=== PATIENT | male | born 1970 | race Caucasian/White ===

== ENCOUNTER 2017-06-22 15:00 | Emergency (ER) | payer SELFPAY ==
[~2017-06-22] VITALS: Ht 165.1 cm; Wt 79.4 kg
--- NOTE | 2017-06-22 16:29 | ED GU-Male ---
General Chief Complaint: -Male Stated Complaint: CANT URINATE Nursing Triage Note: c/o urinary urgency and unable to void. States he has had urinary symptoms x 6 months but has been unable to void this morning. Source: patient, other (Ex-) Exam Limitations: no limitations History of Present Illness Time seen by provider: 16:16 Initial Comments Patient resists ER by private conveyance with chief complaint that for the past several days she's had bristly worsening severe pain while urinating some small amount of purulent looking discharge from urethra and discomfort in his suprapubic region and feels that he takes 10-15 minutes to get any urine out and starting a stream is difficult for him. He has no known history of prostatic hypertrophy or prostatic cancer. He has had one surgery on his abdomen to remove a length of colon for diverticulitis. He has not have any history of radiation or chemotherapy. He states he is on monogamous relationship and that his partner was recently tested and she told him she was cleaning. He's had no fevers, nausea, vomiting, chills, diarrhea, constipation. No history of trauma. He feels pain and swelling in the bottom side of the shaft of his penis. His testicles are non-painful or swollen. He has dyspareunia. He is not known to any primary doctor or urologist. He says this first started over 10 years ago when he had a surgery on his colon he felt that the Parsons catheter left his urethra burning off and on ever since then. Allergies and Home Medications Allergies Coded Allergies: Albuterol (Unverified Adverse Reaction, Mild, HOT, TINGLY, SHAKING, ) Constitutional: No chills, No diaphoresis, No fever Respiratory: No cough, No short of breath Cardiovascular: No chest pain, No palpitations, No syncope Gastrointestinal: abdominal pain (suprapubic mild tenderness and distention), No constipation, No diarrhea, No nausea, No vomiting Genitourinary: burning, discharge, dysuria, pain, other (urinary hesitancy and dyspareunia) Skin: No pruritus, No rash Past Kgmjcml-Kldnqm-Uoanln Hx Patient Social History Alcohol Use: Denies Use Recreational Drug Use: No Smoking Status: Current Everyday Smoker Type Used: Cigarettes Recent Foreign Travel: No Contact w/Someone Who Travel: No Recent Infectious Disease Expo: No Recent Hopitalizations: Yes (02/19/07 DIVERTICULITIS, BOWEL SURGERY, BRONCHITIS , ET STREP THROAT WHEN PT ) Surgeries History of Surgeries: Yes (PARTIAL EXCISION OF LARGE INTESTINE) Respiratory History of Respiratory Disorde: No Cardiovascular History of Cardiac Disorders: No Neurological History of Neurological Disord: No Reproductive System Hx Reproductive Disorders: No Sexually Transmitted Disease: Yes (GONORRHEA) Gastrointestinal History of Gastrointestinal Di: Yes Endocrine History of Endocrine Disorders: No Psychosocial History of Psychiatric Problem: No Blood Transfusions History of Blood Disorders: No Physical Exam Vital Signs Vital Sign - Last 12Hours 06/22/17 15:48 Temp 98.8 Pulse 90 Resp 16 B/P (MAP) 159/107 (124) O2 Delivery Room Air Capillary Refill : Less Than 3 Seconds General Appearance: WD/WN, no apparent distress HEENT: PERRL/EOMI, pharynx normal Neck: non-tender, normal inspection Cardiovascular: normal peripheral pulses, regular rate, rhythm, no edema Respiratory: chest non-tender, lungs clear, normal breath sounds Gastrointestinal: normal bowel sounds, soft, tenderness (mild tenderness over a distended bladder and the superpubic region) Male: other (penis has tenderness around the urethra and a small ecchymotic looking discoloration at the urethral orifice with a scant amount of purulent drainage when expressed. Testicles are's nonswollen nontender and without scrotal effusion.) Neurologic/Psychiatric: alert, oriented x 3 Skin: normal color, warm/dry Progress/Results/Core Measures Suspected Sepsis Recent Fever Within 48 Hours: No Infection Criteria Present: Suspected New Infection New/Unexplained Altered Menta: No Sepsis Screen: No Definite Risk Sepsis Diagnosis: SIRS Temperature:98.8 Pulse: 90 Respiratory Rate: 16 Blood Pressure 159 /107 Mean: 124 Results/Orders Lab Results Laboratory Tests Test 06/22/17 16:55 Range/Units Urine Color YELLOW Urine Clarity SLIGHTLY CLOUDY Urine pH 6 5-9 Urine Specific [place] 1.015 L 1.016-1.022 Urine Protein 1+ H NEGATIVE Urine Glucose (UA) NEGATIVE NEGATIVE Urine Ketones NEGATIVE NEGATIVE Urine Nitrite NEGATIVE NEGATIVE Urine Bilirubin NEGATIVE NEGATIVE Urine Urobilinogen NORMAL NORMAL MG/DL Urine Leukocyte Esterase 2+ H NEGATIVE Urine RBC (Auto) 4+ H NEGATIVE Urine RBC 5-10 H /HPF Urine WBC 25-50 H /HPF Urine Squamous Epithelial Cells 5-10 /HPF Urine Crystals NONE /LPF Urine Bacteria TRACE /HPF Urine Casts NONE /LPF Urine Mucus NEGATIVE /LPF Urine Culture Indicated YES My Orders Orders - RASHAD BUSTAMANTE Bladder Scan (06/22/17 15:42) Ua Culture If Indicated (06/22/17 15:42) Ceftriaxone Injection (Rocephin Injectio (06/22/17 16:30) Lidocaine 1% Injection (Xylocaine 1% Inj (06/22/17 16:30) Azithromycin Tablet (Zithromax Tablet) (06/22/17 16:30) Bladder Scan (06/22/17 16:22) Parsons Cath Insertion (06/22/17 16:22) Neis Richard Dna Urine Test (06/22/17 16:30) Chlamydia Dna Urine Test (06/22/17 16:30) Urine Culture (06/22/17 16:55) Medications Given in ED Current Medications Medications Dose Ordered Sig/Sallie Route Start Time Stop Time Status Last Admin Dose Admin Azithromycin 1,000 mg ONCE ONCE PO 06/22/17 16:30 06/22/17 16:31 DC 06/22/17 17:30 1,000 MG Ceftriaxone Sodium 250 mg ONCE ONCE IM 06/22/17 16:30 06/22/17 16:31 DC 06/22/17 17:31 250 MG Lidocaine HCl 0.9 ml ONCE ONCE INJ 06/22/17 16:30 06/22/17 16:31 DC 06/22/17 17:31 0.9 ML Vital Signs/I&O Vital Sign - Last 12Hours 06/22/17 06/22/17 06/22/17 15:48 17:31 17:31 Temp 98.8 98.8 98.8 Pulse 90 Resp 16 B/P (MAP) 159/107 (124) O2 Delivery Room Air Capillary Refill : Less Than 3 Seconds Blood Pressure Mean: 124 Progress Note : Time: 17:41 Progress Note Patient states he feels very much relieved after having the Parsons catheter placed. We did some teaching. We will talk with the urologist and get him some outpatient follow-up. Urinalysis does demonstrate evidence of infection. He's gotten the Rocephin and azithromycin and urologist a recommends Vibramycin for outpatient therapy and follow-up in the clinic. Consults Consults : Consulting Physician: LY MURRAY MD Consults Notes Discussed case the labs and findings and he recommends outpatient treatment with Vibramycin for 100 mg twice a day 10 days to help a gram positives and gram negatives. He feels that it's likely the patient if he's been expressing urethritis for this many years establish some large strictures that will need treatment in the clinic so he recommends keep Parsons catheter and call him Saturday or Saturday to get an appointment to be seen in the clinic. Departure Impression Impression: Primary Impression: Urinary tract infection Qualified Codes: N30.01 - Acute cystitis with hematuria Additional Impressions: Urethritis Urinary hesitancy Disposition: HOME, SELF-CARE Condition: Improved Departure-Patient Inst. Decision time for Depature: 17:43 Referrals: NO,LOCAL PHYSICIAN (PCP/Family) Primary Care Physician Patient Instructions: Acute Cystitis (DC), Parsons Catheter, Male Add. Discharge Instructions: Drink plenty of fluids. Keep the Parsons catheter cleaned with your regular soap and water. Keep the bag below the level of your bladder at all times to prevent refluxing urine into your bladder. Go to the pharmacy and brass pickler the Vibramycin and take one capsule 100 mg twice a day for the next 10 days. Saturday or Saturday call Dr. Murray, urology at [phone] for an appointment this week. All discharge instructions reviewed with patient and/or family. Voiced understanding. Scripts Doxycycline Hyclate (Vibramycin) 100 Mg Capsule 100 MG PO BID for 10 Days, #20 CAP 0 Refills Prov: RASHAD BUSTAMANTE 06/22/17 Copy Copies To 1: LY MURRAY MD, TITUS J Jun 22, 2017 16:29
[2017-06-22] MEDS ORDERED: AZITHROMYCIN 250 MG TAB (ZITHROMAX) PO ONE (16:30)
[2017-06-22] MEDS ORDERED: cefTRIAXone 250 MG (ROCEPHIN) VIAL IM ONE (16:30)
[2017-06-22] MEDS ORDERED: LIDOCAINE 1% INJ 20 ML (XYLOCAINE) VIAL INJ ONE (16:30)
[2017-06-22 17:04] LABS: BILIRUBIN,URINE NEGATIVE (NEGATIVE); CLARITY,URINE SLIGHTLY CLOUDY; COLOR,URINE YELLOW; GLUCOSE, URINE (UA) NEGATIVE (NEGATIVE); KETONES,URINE NEGATIVE (NEGATIVE); LEUKOCYTE ESTERASE ,URINE 2+ (NEGATIVE); NITRITE,URINE NEGATIVE (NEGATIVE); PH,URINE 6 (5-9); PROTEIN,URINE 1+ (NEGATIVE); UROBILINOGEN,URINE NORMAL (NORMAL)
[2017-06-22 17:13] LABS: BACTERIA,URINE TRACE /HPF; WBC,URINE 25-50 /HPF
[2017-06-22] MEDS ORDERED: DOXY100C PO (17:56)
[2017-06-22 18:00] VITALS: BP 148/90
== END 2017-06-22 18:00 | disposition home or self-care (01) ==
LOC: EDUNIT# 15:00 → ER 15:02
DX: N39.0 Urinary tract infection, site not specified (principal); N34.2 Other urethritis; F17.210 Nicotine dependence, cigarettes, uncomplicated
CPT/HCPCS: 36415; 51702; 81000; 87088; 87491; 87591

== ENCOUNTER 2020-01-08 08:26 | Emergency (ER) | payer SELFPAY ==
[~2020-01-08] VITALS: Ht 165 cm; Wt 77.1 kg
[~2020-01-08 08:26] MED LIST: DOXY100C PO
[2020-01-08 09:02] LABS: BILIRUBIN,URINE NEGATIVE (NEGATIVE); CLARITY,URINE CLEAR; COLOR,URINE YELLOW; GLUCOSE, URINE (UA) NEGATIVE (NEGATIVE); KETONES,URINE TRACE (NEGATIVE); LEUKOCYTE ESTERASE ,URINE NEGATIVE (NEGATIVE); NITRITE,URINE NEGATIVE (NEGATIVE); PROTEIN,URINE NEGATIVE (NEGATIVE)
[2020-01-08 09:08] LABS: BACTERIA,URINE NEGATIVE /HPF; RBC,URINE RARE /HPF; SQUAMOUS EPITHELIAL CELL,UR RARE /HPF; WBC,URINE 0-2 /HPF
[2020-01-08 09:14] LABS: AMPHETAMINE SCREEN, URINE NEGATIVE (NEGATIVE); BARBITURATE SCREEN URINE NEGATIVE (NEGATIVE); BENZODIAZEPINES SCREEN URINE NEGATIVE (NEGATIVE); CANNABINOID SCREEN, URINE POSITIVE (NEGATIVE); COCAINE SCREEN URINE NEGATIVE (NEGATIVE); METHADONE STAT NEGATIVE (NEGATIVE); METHAMPHETAMINE SCREEN URINE S NEGATIVE (NEGATIVE); OPIATE SCREEN URINE NEGATIVE (NEGATIVE); OXYCODONE STAT NEGATIVE (NEGATIVE); PROPOXYPHENE STAT NEGATIVE (NEGATIVE); TRICYCLIC ANTIDEPRESSANTS SCRE NEGATIVE (NEGATIVE)
[2020-01-08 09:28] LABS: BASOPHILS % (AUTO) 0 % (0-10); EOSINOPHILS # (AUTO) 0.1 10^3/uL (0.0-0.3); EOSINOPHILS % (AUTO) 1 % (0-10); HEMATOCRIT 46 % (40-54); HEMOGLOBIN 16.5 G/DL (13.3-17.7); LYMPHOCYTES # (AUTO) 2.5 X 10^3 (1.0-4.0); LYMPHOCYTES % (AUTO) 19 % (12-44); MEAN CORPUSCULAR HEMOGLOBIN 31 PG (25-34); MEAN CORPUSCULAR HGB CONC 36 G/DL (32-36); MEAN CORPUSCULAR VOLUME 87 FL (80-99); MEAN PLATELET VOLUME 9.7 FL (7.4-10.4); MONOCYTES # (AUTO) 1.1 X 10^3 (0.0-1.0); MONOCYTES % (AUTO) 9 % (0-12); NEUTROPHILS # (AUTO) 9.4 X 10^3 (1.8-7.8); NEUTROPHILS % (AUTO) 72 % (42-75); PLATELET COUNT 243 10^3/uL (130-400); WHITE BLOOD COUNT 13.1 10^3/uL (4.3-11.0)
[2020-01-08 09:41] LABS: ALBUMIN 4.5 GM/DL (3.2-4.5); CHLORIDE 101 MMOL/L (98-107); POTASSIUM 3.9 MMOL/L (3.6-5.0); SODIUM 136 MMOL/L (135-145)
--- NOTE | 2020-01-08 09:42 | ED Psychosocial ---
General Chief Complaint: Suicidal Ideation Risk Stated Complaint: SUICIDAL IDEATION Nursing Triage Note: PT PRESENTS TO ED WITH COMPLAINTS OF SUICIDAL IDEATION AND ATTEMPT. PT REPORTS HIS MENTAL HEALTH HAS PROGRESSIVELY GOTTEN WORSE AND LAST NIGHT AT 2100 HE TOOK 10 OF HIS DOGS TRAMADOL AND 20 IBUPROFEN WELL CONSUMING ETOH, TRYING TO KILL HIMSELF. PT ALSO REPORTS HE ATTEMPTED HANGING HIMSELF YESTERDAY WELL. PT REPORTS IN THE PAST HE WAS ABLE TO MANAGE HIS DEPRESSION BUT RECENTLY HE HAS NOT BEEN ABLE TO COPE. PT REPORTS HE IS NOT ANY MEDICATION AND DOES NOT SEE ANYONE FOR MENTAL HEALTH. Source: patient Exam Limitations: no limitations History of Present Illness Date Seen by Provider: Jan 08, 2020 Time Seen by Provider: 08:30 Initial Comments Here with report of suicidal ideation and attempt. He apparently took 20-30 ibuprofen last night as well as 10 of his dogs tramadol. Apparently he was kicked out of his house yesterday after making comments that he may need to take out himself and his . She has restraining order against him now. He states that that wasn't offhanded comment because of his struggle with depression. He is contemplating suicide and did attempt suicide with the pills and a failed hanging last night. Denies neck pain or breathing problems. He is tearful and anxious. States that his mind races all the time. He has been previously on antidepressants in the past but hasn't been on anything in a long time. Doesn't really see a physician. Does not follow with mental health. Remains suicidal and acutely significantly depressed. Denies homicidality currently. Timing/Duration: week, getting worse Severity: severe Associated Symptoms: anxiety, impaired concentration, ingestion, suicidal ideation Allergies and Home Medications Allergies Coded Allergies: Albuterol (Unverified Adverse Reaction, Mild, HOT, TINGLY, SHAKING, 08/19/07) Home Medications No Active Prescriptions or Reported Meds Patient Home Medication List Home Medication List Reviewed: Yes Review of Systems Constitutional: see HPI; No chills, No fever EENTM: no symptoms reported Respiratory: No cough, No short of breath Cardiovascular: No chest pain, No edema Gastrointestinal: No abdominal pain, No nausea, No vomiting Genitourinary: no symptoms reported Musculoskeletal: no symptoms reported Skin: no symptoms reported Psychiatric/Neurological: See HPI, Anxiety, Depressed, Emotional Problems All Other Systems Reviewed Negative Unless Noted: Yes Past Ubckrtz-Bcvbjh-Rpbuuq Hx Past Med/Social Hx: Reviewed Nursing Past Med/Soc Hx Patient Social History Alcohol Use: Rarely Uses Number of Drinks Today: 0 Recreational Drug Use: No Drug of Choice: past hx 15 years ago Smoking Status: Current Everyday Smoker Type Used: Cigarettes Recent Foreign Travel: No Contact w/Someone Who Travel: No Recent Infectious Disease Expo: No Recent Hopitalizations: Yes (02/19/07 DIVERTICULITIS, BOWEL SURGERY, BRONCHITIS, ET STREP THROAT WHEN PT ) Physical Abuse: No Sexual Abuse: No Mistreated: No Fear: No Past Medical History Surgeries: Yes (PARTIAL EXCISION OF LARGE INTESTINE r/t diverticulitis) Respiratory: No Cardiac: No Neurological: No Reproductive Disorders: No Sexually Transmitted Disease: Yes (GONORRHEA) Gastrointestinal: Yes Endocrine: No Psychosocial: Yes Depression Blood Disorders: No Family Medical History Reviewed Nursing Family Hx Heart Disease, Diabetes, Hypertension Physical Exam Vital Signs - First Documented 01/08/20 08:34 Temp 37.0 Pulse 96 Resp 20 B/P (MAP) 173/97 (122) Pulse Ox 97 Capillary Refill : Less Than 3 Seconds Height, Weight, BMI Height: 5'5.00" Weight: 175lbs. oz. [id number]; 28.00 BMI Method:Stated General Appearance: WD/WN, mild distress HEENT: PERRL/EOMI, pharynx normal Neck: non-tender, full range of motion, supple, normal inspection Respiratory: chest non-tender, lungs clear, normal breath sounds Cardiovascular: no murmur, tachycardia Gastrointestinal: non tender, soft Extremities: non-tender, normal inspection Neurologic/Psychiatric: alert, oriented x 3 Appearance/Memory: appropriate insight, disheveled Behavior/Eye Contact: cooperative, good eye contact, increased rate of speech Thoughts/Hallucinations: normal thought pattern, no apparent hallucination Skin: normal color, warm/dry; No ecchymosis Progress/Results/Core Measures Results/Orders Lab Results Laboratory Tests Test 01/08/20 08:05 01/08/20 09:16 Range/Units Urine Color YELLOW Urine Clarity CLEAR Urine pH 6.0 5-9 Urine Specific [place] <=1.005 1.016-1.022 Urine Protein NEGATIVE NEGATIVE Urine Glucose (UA) NEGATIVE NEGATIVE Urine Ketones TRACE H NEGATIVE Urine Nitrite NEGATIVE NEGATIVE Urine Bilirubin NEGATIVE NEGATIVE Urine Urobilinogen 0.2 < = 1.0 MG/DL Urine Leukocyte Esterase NEGATIVE NEGATIVE Urine RBC (Auto) TRACE-I NEGATIVE Urine RBC RARE /HPF Urine WBC 0-2 /HPF Urine Squamous Epithelial Cells RARE /HPF Urine Crystals NONE /LPF Urine Bacteria NEGATIVE /HPF Urine Casts NONE /LPF Urine Mucus NEGATIVE /LPF Urine Culture Indicated NO Urine Opiates Screen NEGATIVE NEGATIVE Urine Oxycodone Screen NEGATIVE NEGATIVE Urine Methadone Screen NEGATIVE NEGATIVE Urine Propoxyphene Screen NEGATIVE NEGATIVE Urine Barbiturates Screen NEGATIVE NEGATIVE Ur Tricyclic Antidepressants Screen NEGATIVE NEGATIVE Urine Phencyclidine Screen NEGATIVE NEGATIVE Urine Amphetamines Screen NEGATIVE NEGATIVE Urine Methamphetamines Screen NEGATIVE NEGATIVE Urine Benzodiazepines Screen NEGATIVE NEGATIVE Urine Cocaine Screen NEGATIVE NEGATIVE Urine Cannabinoids Screen POSITIVE H NEGATIVE White Blood Count 13.1 H 4.3-11.0 10^3/uL Red Blood Count 5.31 4.35-5.85 10^6/uL Hemoglobin 16.5 13.3-17.7 G/DL Hematocrit 46 40-54 % Mean Corpuscular Volume 87 80-99 FL Mean Corpuscular Hemoglobin 31 25-34 PG Mean Corpuscular Hemoglobin Concent 36 32-36 G/DL Red Cell Distribution Width 13.0 10.0-14.5 % Platelet Count 243 130-400 10^3/uL Mean Platelet Volume 9.7 7.4-10.4 FL Neutrophils (%) (Auto) 72 42-75 % Lymphocytes (%) (Auto) 19 12-44 % Monocytes (%) (Auto) 9 0-12 % Eosinophils (%) (Auto) 1 0-10 % Basophils (%) (Auto) 0 0-10 % Neutrophils # (Auto) 9.4 H 1.8-7.8 X 10^3 Lymphocytes # (Auto) 2.5 1.0-4.0 X 10^3 Monocytes # (Auto) 1.1 H 0.0-1.0 X 10^3 Eosinophils # (Auto) 0.1 0.0-0.3 10^3/uL Basophils # (Auto) 0.0 0.0-0.1 10^3/uL Sodium Level 136 135-145 MMOL/L Potassium Level 3.9 3.6-5.0 MMOL/L Chloride Level 101 98-107 MMOL/L Carbon Dioxide Level 22 21-32 MMOL/L Anion Gap 13 5-14 MMOL/L Blood Urea Nitrogen 10 7-18 MG/DL Creatinine 0.88 0.60-1.30 MG/DL Estimat Glomerular Filtration Rate > 60 BUN/Creatinine Ratio 11 Glucose Level 119 H 70-105 MG/DL Calcium Level 10.4 H 8.5-10.1 MG/DL Corrected Calcium 10.0 8.5-10.1 MG/DL Total Bilirubin 0.9 0.1-1.0 MG/DL Aspartate Amino Transf (AST/SGOT) 21 5-34 U/L Alanine Aminotransferase (ALT/SGPT) 20 0-55 U/L Alkaline Phosphatase 62 40-136 U/L Total Protein 7.7 6.4-8.2 GM/DL Albumin 4.5 3.2-4.5 GM/DL TSH [place] Testing 0.77 0.35-4.94 UIU/ML Salicylates Level < 5.0 L 5.0-20.0 MG/DL Acetaminophen Level < 10 L 10-30 UG/ML Serum Alcohol < 10 <10 MG/DL My Orders Orders - PADILLA KAISER MD Ua Culture If Indicated (01/08/20 08:40) Cbc With Automated Diff (01/08/20 08:40) Comprehensive Metabolic Panel (01/08/20 08:40) Alcohol (01/08/20 08:40) Drug Screen Stat (Urine) (01/08/20 08:40) Acetaminophen (01/08/20 08:40) Salicylate (01/08/20 08:40) Ekg Tracing (01/08/20 08:40) Ed Iv/Invasive Line Start (01/08/20 08:40) Thyroid Analyzer (01/08/20 08:40) Monitor-Rhythm Ecg Trace Only (01/08/20 08:40) Bh Status Checks/Observation Q15M (01/08/20 08:40) Ed Iv/Invasive Line Start (01/08/20 08:40) General/Regular (01/08/20 Breakfast) Amlodipine Tablet (Norvasc Tablet) (01/08/20 10:30) Medications Given in ED Current Medications Medications Dose Ordered Sig/Sallie Route Start Time Stop Time Status Last Admin Dose Admin Amlodipine Besylate 5 mg ONCE ONCE PO 01/08/20 10:30 01/08/20 10:31 DC 01/08/20 10:27 5 MG Vital Signs/I&O 01/08/20 08:34 Temp 37.0 Pulse 96 Resp 20 B/P (MAP) 173/97 (122) Pulse Ox 97 Blood Pressure Mean: 122 Progress Progress Note : Progress Note Seen and evaluated. Labs, UA and EKG ordered. Poison control recontacted although patient should be well outside of a toxicity window since the overdose was at 9 PM last night. Monitor patient. 1010: Patient medically cleared for inpatient psychiatric stay. We will initiate trying to find facility. Monitor patient. 1248: Remains calm and without distress. We're working on finding facility still. Monitor patient. 1321: I did discuss the case with Dr. Ken at [facility] in [place], [place]. He has accepted the patient for transfer. Pending bed number. Discussed with the patient who agrees. Initial ECG Impression Date: Jan 08, 2020 Initial ECG Impression Time: 08:50 Initial ECG Rate: 86 Initial ECG Rhythm: Normal Sinus Initial ECG Impression: Normal Comment Normal sinus rhythm with normal axis. No evidence of ST elevation [place]. No Previous available for comparison. Interpreted by me. Departure Impression Primary Impression: Suicide attempt Additional Impressions: Suicidal ideation Severe depression Disposition: 02 XFER SHT-TRM HOSP Condition: Stable Transfer Transfer Reason: Exceeds level of care Time Spoke to Accepting Phy: 13:21 Transfer Facility: [place], [place], Dr. Ken accepting Method of Transfer: Private Vehicle ([facility]) Departure-Patient Inst. Referrals: NO,LOCAL PHYSICIAN (PCP/Family) Primary Care Physician Patient Instructions: OUTPT MENTAL HEALTH SERVICES Scripts No Active Prescriptions or Reported Meds PADILLA KAISER MD Jan 08, 2020 09:42
[2020-01-08 09:43] LABS: CALCIUM 10.4 MG/DL (8.5-10.1)
[2020-01-08 09:44] LABS: GLUCOSE 119 MG/DL (70-105); TOTAL PROTEIN 7.7 GM/DL (6.4-8.2)
[2020-01-08 09:45] LABS: CARBON DIOXIDE 22 MMOL/L (21-32)
[2020-01-08 09:46] LABS: BILIRUBIN,TOTAL 0.9 MG/DL (0.1-1.0)
[2020-01-08 09:48] LABS: ALKALINE PHOSPHATASE 62 U/L (40-136); CREATININE SERUM 0.88 MG/DL (0.60-1.30); GFR ESTIMATED > 60
[2020-01-08 09:49] LABS: BUN/CREATININE RATIO 11
[2020-01-08 09:50] LABS: SALICYLATE < 5.0 MG/DL (5.0-20.0)
[2020-01-08 09:51] LABS: ALANINE AMINOTRANSFERASE 20 U/L (0-55)
[2020-01-08 10:04] LABS: ACETAMINOPHEN < 10 UG/ML (10-30)
[2020-01-08] MEDS ORDERED: amLODIPine 5 MG (NORVASC) TAB PO ONE (10:30)
--- NOTE | 2020-01-08 11:47 | NUR ---
pt up using restroom at this time.
--- NOTE | 2020-01-08 13:14 | NUR ---
fer contacted regarding bed status and whether they had recieved fax info on pt. message left on voicemail.
--- NOTE | 2020-01-08 13:30 | NUR ---
john faye called for transportation of pt to [facility] at this time
--- NOTE | 2020-01-08 13:41 | NUR ---
karlene cooper pt at this time
[2020-01-08] MEDS ORDERED: NS IV 1000 ML 0 ML ONE (14:33)
[2020-01-08] MEDS ORDERED: LACTATED RINGERS 0 ML IV ONE (14:34)
[2020-01-08 15:23] VITALS: BP 152/90
--- OUTSIDE RECORDS SUMMARY | 2020-01-08 17:14 | XMS REPORT | Continuity of Care Document ---
Author Organization Unknown Address Unknown Phone Unavailable Allergies Active Description Code Type Severity Reaction Onset Reported/Identified Relationship to Patient Clinical Status Yes albuterol [id number] Drug Allergy Mild HOT, TINGLY, SH 08/19/2007 Medications There is no data. Problems Date Dx Coded Attending Type Code Diagnosis Diagnosed By 06/22/2017 RASHAD BUSTAMANTE MD J Ot F17.210 NICOTINE DEPENDENCE, CIGARETTES, UNCOMPL 06/22/2017 RASHAD BUSTAMANTE MD Ot N34. 2 OTHER URETHRITIS 06/22/2017 RASHAD BUSTAMANTE MD J Ot N39. 0 URINARY TRACT INFECTION, SITE NOT SPECIF 06/22/2017 RASHAD BUSTAMANTE MD Ot R30. 0 DYSURIA 06/28/2017 RASHAD BUSTAMANTE MD Ot F17.210 NICOTINE DEPENDENCE, CIGARETTES, UNCOMPL 06/28/2017 JANIE BUSTAMANTE MDUS J Ot N34. 2 OTHER URETHRITIS 06/28/2017 RASHAD BUSTAMANTE MD J Ot N39. 0 URINARY TRACT INFECTION, SITE NOT SPECIF 06/28/2017 RASHAD BUSTAMANTE MD Ot R30. 0 DYSURIA Procedures There is no data. Results Test Result Range Complete urinalysis with reflex to cultu re - 06/22/17 16:55 Urine color determination YELLOW NRG Urine clarity determination SLIGHTLY CLOUDY NRG Urine pH measurement by test strip 6 5-9 Specific gravity of urine by test strip 1.015 1.016-1.022 Urine protein assay by test strip, semi-quantitative 1+ NEGATIVE Urine glucose detection by automated test strip NE GATIVE NEGATIVE Erythrocytes detection in urine sediment by light micr oscopy 4+ NEGATIVE Urine ketones detection by automated test strip NE GATIVE NEGATIVE Urine nitrite detection by test strip NEGATIVE NEGATIVE Urine total bilirubin detection by test strip NEGA TIVE NEGATIVE Urine urobilinogen measurement by automated test strip (mass/volume) NORMAL NORMAL Urine leukocyte esterase detection by dipstick 2+ NEGATIVE Automated urine sediment erythrocyte cou nt by microscopy (number/high power field) [HPF] NRG Automated urine sediment leukocyte count by microscopy (number/high power field) [HPF] NRG Bacteria detection in urine sediment by light microsco py TRACE NRG Squamous epithelial cells detection in u rine sediment by light microscopy 5-10 NRG Crystals detection in urine sediment by light microsco py NONE NRG Casts detection in urine sediment by light microscopy NONE NRG Mucus detection in urine sediment by light microscopy NEGATIVE NRG Complete urinalysis with reflex to culture YES NRG Bacterial urine culture - 06/22/17 16:55 URINE CULTURE RESULTS MORE THAN 3 ISOLATES NRG Chlamydia DNA amp probe, urine - 8 16:55 Chlamydia DNA amp probe, urine Not Detected Not Detected Urine Neisseria gonorrhoeae DNA assay - 06/22/17 16:55 Gonorrhea amp DNA-urine Not Detected No t Detected Complete urinalysis with reflex to cultu re - 01/08/20 08:05 Urine color determination YELLOW NRG Urine clarity determination CLEAR NR G Urine pH measurement by test strip 6.0 5-9 Specific gravity of urine by test strip <= 1.016-1.022 Urine protein assay by test strip, semi-quantitative NEGATIVE NEGATIVE Urine glucose detection by automated test strip NE GATIVE NEGATIVE Erythrocytes detection in urine sediment by light micr oscopy TRACE-I NEGATIVE Urine ketones detection by automated test strip TR SRAVANI NEGATIVE Urine nitrite detection by test strip NEGATIVE NEGATIVE Urine total bilirubin detection by test strip NEGA TIVE NEGATIVE Urine urobilinogen measurement by automated test strip (mass/volume) 0.2 mg/dL < = 1.0 Urine leukocyte esterase detection by dipstick NEG ATIVE NEGATIVE Automated urine sediment erythrocyte cou nt by microscopy (number/high power field) RARE NRG Automated urine sediment leukocyte count by microscopy (number/high power field) [HPF] NRG Bacteria detection in urine sediment by light microsco py NEGATIVE NRG Squamous epithelial cells detection in u rine sediment by light microscopy RARE NRG Crystals detection in urine sediment by light microsco py NONE NRG Casts detection in urine sediment by light microscopy NONE NRG Mucus detection in urine sediment by light microscopy NEGATIVE NRG Complete urinalysis with reflex to culture NO NRG Urine drug screening test - 01/08/20 08: 05 Urine phencyclidine detection by screening method NEGATIVE NEGATIVE Urine benzodiazepines detection by screening method NEGATIVE NEGATIVE Urine cocaine detection NEGATIVE NEGATI VE Urine amphetamines detection by screening method N EGATIVE NEGATIVE Urine methamphetamine detection by screening method NEGATIVE NEGATIVE Urine cannabinoids detection by screening method P OSITIVE NEGATIVE Urine opiates detection by screening method NEGATI VE NEGATIVE Urine barbiturates detection NEGATIVE N EGATIVE Screening urine tricyclic antidepressants detection NEGATIVE NEGATIVE Urine methadone detection by screening method NEGA TIVE NEGATIVE Urine oxycodone detection NEGATIVE NEGA TIVE Urine propoxyphene detection NEGATIVE N EGATIVE Complete blood count (CBC) with automate d white blood cell (WBC) differential - 01/08/20 09:16 Blood leukocytes automated count (number/volume) 13.1 10*3/uL 4.3-11.0 Blood erythrocytes automated count (number/volume) 5.31 10*6/uL 4.35-5.85 Venous blood hemoglobin measurement (mass/volume) 16.5 g/dL 13.3-17.7 Blood hematocrit (volume fraction) 46 % 40-54 Automated erythrocyte mean corpuscular volume 87 [ foz_us] 80-99 Automated erythrocyte mean corpuscular h emoglobin (mass per erythrocyte) 31 pg 25-34 Automated erythrocyte mean corpuscular h emoglobin concentration measurement (mass/volume) 36 g/dL 32-36 Automated erythrocyte distribution width ratio 13. 0 % 10.0- 14.5 Automated blood platelet count (count/volume) 243 10*3/uL 130-400 Automated blood platelet mean volume measurement 9.7 [foz_us] 7.4-10.4 Automated blood neutrophils/100 leukocytes 72 % 42-75 Automated blood lymphocytes/100 leukocytes 19 % 12-44 Blood monocytes/100 leukocytes 9 % 0-12 Automated blood eosinophils/100 leukocytes 1 % 0-10 Automated blood basophils/100 leukocytes 0 % 0-10 Blood neutrophils automated count (number/volume) 9.4 10*3 1.8-7.8 Blood lymphocytes automated count (number/volume) 2.5 10*3 1.0-4.0 Blood monocytes automated count (number/volume) 1. 1 10*3 0.0-1.0 Automated eosinophil count 0.1 10*3/uL 0 .0-0.3 Automated blood basophil count (count/volume) 0.0 10*3/uL 0.0-0.1 Comprehensive metabolic panel - 01/08/20 09:16 Serum or plasma sodium measurement (moles/volume) 136 mmol/L 135-145 Serum or plasma potassium measurement (moles/volume) 3.9 mmol/L 3.6-5.0 Serum or plasma chloride measurement (moles/volume) 101 mmol/L 98-107 Carbon dioxide 22 mmol/L 21-32 Serum or plasma anion gap determination (moles/volume) 13 mmol/L 5-14 Serum or plasma urea nitrogen measurement (mass/volume ) 10 mg/dL 7-18 Serum or plasma creatinine measurement (mass/volume) 0.88 mg/dL 0.60-1.30 Serum or plasma urea nitrogen/creatinine mass ratio 11 NRG Serum or plasma creatinine measurement w ith calculation of estimated glomerular filtration rate > NRG Serum or plasma glucose measurement (mass/volume) 119 mg/dL 70-105 Serum or plasma calcium measurement (mass/volume) 10.4 mg/dL 8.5-10.1 Serum or plasma total bilirubin measurement (mass/volu me) 0.9 mg/dL 0.1-1.0 Serum or plasma alkaline phosphatase rodney surement (enzymatic activity/volume) 62 U/L 40-136 Serum or plasma aspartate aminotransfera se measurement (enzymatic activity/volume) 21 U/L 5-34 Serum or plasma alanine aminotransferase measurement (enzymatic activity/volume) 20 U/L 0-55 Serum or plasma protein measurement (mass/volume) 7.7 g/dL 6.4-8.2 Serum or plasma albumin measurement (mass/volume) 4.5 g/dL 3.2-4.5 CALCIUM CORRECTED 10.0 mg/dL 8.5-10.1 Serum or plasma ethanol measurement (mas s/volume) - 01/08/20 09:16 Serum or plasma ethanol measurement (mass/volume) < mg/dL <10 Serum or plasma thyrotropin measurement by detection limit <=0.05 miu/l (units/volume) - 01/08/20 09:16 Serum or plasma thyrotropin measurement by detection limit <=0.05 miu/l (units/volume) 0.77 u[iU]/mL 0.35-4.94 Encounters ACCT No. Visit Date/Time Discharge Status Pt. Type Provider Facility Loc./Unit Complaint [id number] 01/08/2020 08:27:00 020 15:23:00 DIS Emergency PADILLA KAISER MD [facility] ER SUICIDAL IDEATI ON [id number] 06/22/2017 15:02:00 018 18:00:00 DIS Emergency ROBBY CORBETT, RASHAD Valles [facility] ER CANT URINATE
== END 2020-01-08 15:23 | disposition short-term general hospital (02) ==
LOC: EDUNIT# 08:26 → ER 08:27
DX: T14.91XA Suicide attempt, initial encounter (principal); F32.9 Major depressive disorder, single episode, unspecified; F17.210 Nicotine dependence, cigarettes, uncomplicated; Z88.8 Allergy status to other drugs, medicaments and biological substances; Z82.49 Family history of ischemic heart disease and other diseases of the circulatory system; X58.XXXA Exposure to other specified factors, initial encounter
CPT/HCPCS: 80053; 80306; 81000; 84443; 85025; 93041; 99285; G0480 ×3; 36415; 80320; 80329; 93005

== ENCOUNTER 2020-05-13 05:30 | Outpatient (RCR) | payer OTHER ==
[~2020-05-13] VITALS: Ht 165 cm; Wt 85.0 kg
[~2020-05-13 05:30] MED LIST changes: +AMLO-251 PO; +FLUO20CA42 PO; +LISI-552 PO
== END 2020-05-13 09:55 | disposition home or self-care (01) ==
LOC: EDBD → PREOP 05:30
PROVIDERS: ATTEND Urology
DX: Z01.812 Encounter for preprocedural laboratory examination (principal); N35.919 Unspecified urethral stricture, male, unspecified site; M89.9 Disorder of bone, unspecified; Z20.828 Contact with and (suspected) exposure to other viral communicable diseases
CPT/HCPCS: 87635

== ENCOUNTER 2020-05-17 06:45 | Day surgery (SDC) | payer OTHER ==
[2020-05-17] VITALS (10 sets, daily range): BP systolic 117–167; BP diastolic 58–97
[~2020-05-17] VITALS: Ht 165 cm; Wt 86.0 kg
--- NOTE | 2020-05-17 07:07 | Progress Note-Pre Operative ---
Pre-Operative Progress Note H&P Reviewed The H&P was reviewed, patient examined and no changes noted. Date Seen by Provider: May 17, 2020 Time Seen by Provider: 07:06 Date H&P Reviewed: May 17, 2020 Time H&P Reviewed: 07:06 Pre-Operative Diagnosis: LARGE INGUINAL AND SMALL PENILE WARTS, AND SEVERE MEATAL STENOSIS LY MURRAY MD May 17, 2020 07:07
--- NOTE | 2020-05-17 07:16 | Progress Note-Post Operative ---
Post-Operative Progess Note Surgeon (s)/Food And Beverage Operations Manager (s) Surgeon LY MURRAY MD Food And Beverage Operations Manager: SAME Pre-Operative Diagnosis LARGE INGUINAL AND SMALL PENILE WARTS, AND SEVERE MEATAL STENOSIS Post-Operative Diagnosis SAME Procedure & Operative Findings Date of Procedure 05/17/20 Procedure Performed/Findings EXCISION OF WARTS, MEATOTOMY, AND CYSTOSCOPY Anesthesia Type GENERAL Estimated Blood Loss Estimated blood loss (mL): NONE Specimens/Packing Specimens Removed SCROTAL AND INGUINAL WARTS Packing: NONE LY MURRAY MD May 17, 2020 07:16
--- NOTE | 2020-05-17 07:18 | Discharge Inst-Urology ---
Discharge Inst-Urology Reconcile Patient Problems Problems Reviewed?: Yes Final Diagnosis WARTS AND SEVERE MEATAL STENOSIS Patient Instructions/Follow Up Plan/Assessment/Instructions Please make appointment to been seen in office in 4 weeks. Rest for 1 week Neosporin+Pain ointment to meatus and excised warts areas BID for 5 days Showers, no bath Keep bowels soft and moving Increase oral fluids for 48 hours and then as needed. Diet as tolerated. If questions or concerns contact your physician Or seek help at emergency department. LY MURRAY MD May 17, 2020 07:18
[2020-05-17] MEDS: LACTATED RINGERS 1,000 ML IV PRN ×2 (07:55→09:17)
[2020-05-17] MEDS ORDERED: ceFAZolin INJECTION 1,000 MG in WATER (STERILE) FOR INJECTION 10 ML IV ONE (08:00)
[2020-05-17] MEDS ORDERED: fentaNYL INJECTION 100 MCG/2 ML AMP ONE ×2 (08:21→09:13)
[2020-05-17] MEDS ORDERED: MIDAZOLAM 2 MG/2 ML (VERSED) VIAL ONE (08:21)
[2020-05-17] MEDS ORDERED: proPOfol 200 MG/20 ML (DIPRIVAN) VIAL IV ONE (08:21)
[2020-05-17] MEDS ORDERED: LIDOCAINE PF 2% 5 ML (XYLOCAINE) VIAL ONE (08:21)
[2020-05-17] MEDS ORDERED: SEVOFLURANE (ULTANE) 15 ML INHAL SOLN ONE (08:21)
[2020-05-17] MEDS ORDERED: ONDANSETRON 4 MG/2 ML (SDV) Z0FRAN ONE (08:21)
[2020-05-17] MEDS ORDERED: NEO/POLY/BAC (NEOSPORIN) OINT 15 GM TUBE ONE (09:17)
[2020-05-17] MEDS ORDERED: PHENYLEPHRINE 100 MCG/ML 10 ML (ANESTHESIA) SYR ONE (09:35)
[2020-05-17] MEDS ORDERED: CEPH-507 PO (09:41)
[2020-05-17] MEDS ORDERED: TRM50T PO (09:41)
[2020-05-17] MEDS ORDERED: MEPERIDINE (DEMEROL) INJ 50 MG/ML IVP ONE (09:45)
[2020-05-17] MEDS ORDERED: fentaNYL INJECTION 100 MCG/2 ML AMP IVP ONE (09:45)
[2020-05-17] MEDS ORDERED: morphine INJ 10 MG/ML 1ML (SYR OR VIAL) IVP ONE (09:45)
[2020-05-17] MEDS ORDERED: ONDANSETRON 4 MG/2 ML (SDV) Z0FRAN IVP PRN (09:45)
--- NOTE | 2020-05-17 09:46 | Anesthesia-General Post-Op ---
General Patient Condition Mental Status/LOC: Same as Preop Cardiovascular: Satisfactory Nausea/Vomiting: Absent Respiratory: Satisfactory Pain: Controlled Complications: Absent Post Op Complications Complications None Follow Up Care/Instructions Patient Instructions None needed. Anesthesia/Patient Condition Patient Condition Patient is doing well, no complaints, stable vital signs, no apparent adverse anesthesia problems. No complications reported per nursing. SOFIYA AKBAR CRNA May 17, 2020 09:46
--- NOTE | 2020-05-17 10:25 | NUR ---
TO AMB SURG FROM PAR PER CART. RATES GENITAL SURGICAL SITE PAIN 4. NO BLEEDING AT SCROTAL SURGICAL SITES, ICE PACK ON. PO FLUIDS AND CRACKERS PROVIDED.
--- NOTE | 2020-05-17 10:59 | NUR ---
TRAMADOL 50 MG, ONE TAB, GIVEN PO FOR GENITAL SURGICAL SITE PAIN.
--- NOTE | 2020-05-17 11:55 | NUR ---
RESTING QUIETLY, RATES GENITAL SURGICAL SITE INCISIONAL PAIN 2-3, NO BLEEDING AT SITES. STATES HE IS READY FOR DISMISSAL.
--- NOTE | 2020-05-17 13:57 | OPERATIVE REPORT ---
DATE OF SERVICE: 05/17/2020 PREOPERATIVE DIAGNOSES: 1. Severe meatal stenosis. 2. Left scrotal wart. 3. Large left inguinal wart. POSTOPERATIVE DIAGNOSES: 1. Severe meatal stenosis. 2. Left scrotal wart. 3. Large left inguinal wart. OPERATION PERFORMED: Meatotomy, meatoplasty, cystoscopy and excision of scrotal and inguinal warts. SURGEON: Aroldo Murray MD ANESTHESIA: General. COMPLICATIONS: None. DESCRIPTION OF PROCEDURE: Frist I went ahead and performed a meatotomy ventrally then approximated the mucosa with interrupted 3-0 chromic catgut, it was wide opening of the meatus. Flexible cystoscope was introduced under vision. The anterior urethra was normal. The prostate was nonobstructing. Bladder neck was open. Bladder was inspected and was normal and clean. No foreign body, bladder tumor or stone visualized. Cystoscopy was confirmed in an antegrade fashion and the cystoscope was removed. I excised the small wart in the left scrotal wall, cauterized the base and then approximated the skin was interrupted 3-0 chromic catgut. Then, I excised the large wart at the left inguinal area, cauterized all the base to kill any viruses and then approximated the edges with interrupted 3-0 chromic catgut. Needle, sponge, instrument counts were correct. Estimated blood loss negligible. Neosporin plus pain was applied to the meatus and to areas of both excision. The patient tolerated the procedure and anesthesia well and was sent to recovery room in stable condition. Instructions were given to his . Job ID: [id number] DocumentID: [id number] Dictated Date: 05/17/2020 09:29:32 Manager Search Engine Date: 05/17/2020 13:56:06 Dictated By: AROLDO MURRAY MD [facility]
== END 2020-05-17 12:10 | disposition home or self-care (01) ==
LOC: SDC 06:45
PROVIDERS: ATTEND Urology
DX: N35.911 Unspecified urethral stricture, male, meatal (principal); B07.9 Viral wart, unspecified; A63.0 Anogenital (venereal) warts; J44.9 Chronic obstructive pulmonary disease, unspecified; G47.33 Obstructive sleep apnea (adult) (pediatric); I10 Essential (primary) hypertension; K21.9 Gastro-esophageal reflux disease without esophagitis; F41.9 Anxiety disorder, unspecified; F32.9 Major depressive disorder, single episode, unspecified; E66.9 Obesity, unspecified; Z68.31 Body mass index [BMI] 31.0-31.9, adult; Z79.899 Other long term (current) drug therapy; Z88.8 Allergy status to other drugs, medicaments and biological substances
CPT/HCPCS: 87081; 88305

== ENCOUNTER → 2021-10-19 | Outpatient (CLI) | payer OTHER ==
[~2021-10-19] MED LIST changes: +CEPH-507 PO; -LISI-552 PO; +LISI20TA26 PO; +TRM50T PO
== END ==
LOC: CARD 11:00
PROVIDERS: ATTEND Physician Assistant
DX: I11.9 Hypertensive heart disease without heart failure (principal)
CPT/HCPCS: 93306

== ENCOUNTER → 2021-11-01 | Outpatient (CLI) | payer OTHER ==
[~2021-11-01] MED LIST changes: +CATHETER FLUSH 10 ML SYR IVP PRN; +REGADENOSON 0.4 MG/5 ML SYR (LEXISCAN) IV ONE
[2021-11-01 13:25] VITALS: BP 150/89
--- NOTE | 2021-11-01 16:25 | Cardiology Stress Test Report ---
Stress Test Report Date of Procedure/Referring: Date of Procedure: November 01, 2021 PCP No,Local Physician Admitting Physician Admitting Physician: Attending Physician: Marybeth Hull Indications: HTN Baseline Heart Rate: 86 Baseline Blood Pressure: Blood Pressure Systolic: 150 Blood Pressure Diastolic: 89 Baseline Vitals Vital Signs Date Time Temp Pulse Resp B/P (MAP) Pulse Ox O2 Delivery O2 Flow Rate FiO2 11/01/21 13:25 82 150/89 (109) 97 Baseline EKG: Baseline EKG: NSR Summary After explaining the procedure to the patient, he signed a consent and then brought to the stress nuclear laboratory. Patient received 0.4 mg Lexiscan for stress test, ECG, heart rate and blood pressure were monitored continuously. Resting and stress dose of radio tracer were injected, imaging was acquired and reviewed in short axis, horizontal long axis and vertical long axis views. TID: 1.07 SSS: 7 SDS: 7 EF: 52 1. Patient tolerated Lexiscan well 2. Reversible ischemia involving the mid to apical anterior wall, mid to apical inferior wall 3. Normal left ventricular size, ejection fraction 52% EMILY GOODE MD November 01, 2021 16:25
== END ==
LOC: CARD 11:09
PROVIDERS: ATTEND Physician Assistant
DX: I10 Essential (primary) hypertension (principal)
CPT/HCPCS: 78452; 93017; A9502

== ENCOUNTER 2021-11-08 08:50 | Day surgery (SDC) | payer OTHER ==
[~2021-11-08] VITALS: Ht 165.1 cm; Wt 90.7 kg
[2021-11-08] VITALS (9 sets, daily range): BP systolic 114–170; BP diastolic 71–98
[~2021-11-08 08:50] MED LIST changes: -CATHETER FLUSH 10 ML SYR IVP PRN; -REGADENOSON 0.4 MG/5 ML SYR (LEXISCAN) IV ONE
[2021-11-08] MEDS ORDERED: HEParin (CATH LAB) 2,000 ML IV ONE (09:08)
[2021-11-08] MEDS ORDERED: LIDOCAINE 1% INJ 20 ML VIAL ONE (09:08)
[2021-11-08] MEDS ORDERED: NS IV 1000 ML 1,000 ML IV SCH ×2 (09:15→11:15)
[2021-11-08 09:34] LABS: HEMATOCRIT 45 % (40-54); HEMOGLOBIN 15.4 g/dL (13.3-17.7); MEAN CORPUSCULAR HEMOGLOBIN 30 pg (25-34); MEAN CORPUSCULAR HGB CONC 34 g/dL (32-36); MEAN CORPUSCULAR VOLUME 89 fL (80-99); PLATELET COUNT 200 10^3/uL (130-400); WHITE BLOOD COUNT 8.5 10^3/uL (4.3-11.0)
--- NOTE | 2021-11-08 09:34 | Diagnostic Imaging Report ---
INDICATION: Abnormal stress test AP view of the chest is obtained. COMPARISON: No previous study is available for comparison at this time. FINDINGS: Heart size and pulmonary vasculature are within normal limits, and the lungs are clear, bilaterally. IMPRESSION: Unremarkable chest. Dictated by: Dictated on workstation # [id number]
[2021-11-08 09:35] LABS: BILIRUBIN,URINE NEGATIVE (NEGATIVE); CLARITY,URINE CLEAR; COLOR,URINE YELLOW; GLUCOSE, URINE (UA) NEGATIVE (NEGATIVE); KETONES,URINE NEGATIVE (NEGATIVE); LEUKOCYTE ESTERASE ,URINE NEGATIVE (NEGATIVE); NITRITE,URINE NEGATIVE (NEGATIVE); PROTEIN,URINE 2+ (NEGATIVE)
[2021-11-08] MEDS ORDERED: ATOR20TA66 PO (09:47)
[2021-11-08] MEDS ORDERED: METO50TA7 PO (09:47)
[2021-11-08] MEDS ORDERED: FLUO40CA12 PO (09:47)
[2021-11-08] MEDS ORDERED: LISI20TA26 PO (09:47)
[2021-11-08 09:56] LABS: POTASSIUM 3.8 MMOL/L (3.6-5.0)
[2021-11-08 09:57] LABS: ALBUMIN 4.1 GM/DL (3.2-4.5)
[2021-11-08 09:58] LABS: CALCIUM 9.2 MG/DL (8.5-10.1)
[2021-11-08 10:01] LABS: BILIRUBIN,TOTAL 0.4 MG/DL (0.1-1.0)
[2021-11-08 10:02] LABS: INR 0.9 (0.8-1.4); PROTHROMBIN TIME PATIENT 12.9 SEC (12.2-14.7)
[2021-11-08 10:03] LABS: CREATININE SERUM 0.78 MG/DL (0.60-1.30)
[2021-11-08 10:12] LABS: BACTERIA,URINE NEGATIVE /HPF; SQUAMOUS EPITHELIAL CELL,UR 0-2 /HPF; WBC,URINE 0-2 /HPF
[2021-11-08 10:13] LABS: URINE OTHER MOD SPERM /HPF
[2021-11-08] MEDS ORDERED: MIDAZOLAM 5 MG/5 ML (VERSED) VIAL ONE (10:23)
[2021-11-08] MEDS ORDERED: HEParin 1000 UNIT/ML (10ML VIAL) FOR BOLUS ONE (10:23)
[2021-11-08] MEDS ORDERED: NITRO DRIP 25000 MCG/D5W 250 ML IV ONE (10:23)
[2021-11-08] MEDS ORDERED: fentaNYL INJ 100 MCG/2 ML AMP ONE (10:23)
[2021-11-08] MEDS ORDERED: VERAPAMIL 5 MG/2 ML (CALAN) VIAL IV ONE (10:23)
--- NOTE | 2021-11-08 11:02 | Conscious Sedation/ASA ---
Conscious Sedation Pre-Proced Time 11:02 ASA Score 3 For ASA 3 and 4: Consider anesthesia and medical clearance. Also, for patients with a history of failed moderate sedation consider anesthesia. Airway Lungs Heart ASA score ASA 1: a normal healthy patient ASA 2: a patient with a mild systemic disease (mid diabetes, controlled hypertension, obesity x ASA 3: a patient with a severe systemic disease that limits activity (angina, COPD, prior Myocardial infarction) ASA 4: a patient with an incapacitating disease that is a constant threat to life (CHF, renal failure) ASA 5: a moribund patient not expected to survive 24 hrs. (ruptured aneurysm) ASA 6: a declared brain- patient whose organs are being harvested. For emergent operations, add the letter E after the classification Mallampati Classification Grade 3 Sedation Plan Analgesia, Amnesia, Plan communicated to team members, Discussed options with patient/fam, Discussed risks with patient/fam The patient is an appropriate candidate to undergo the planned procedure, sedation, and anesthesia. The patient immediately re-assessed prior to indication. EMILY GOODE MD Nov 08, 2021 11:02
--- NOTE | 2021-11-08 11:06 | Cardiac Cath Report ---
Cardiac Cath Report Physician (s)/[employer] Teacher (s) Physician EMILY GOODE MD Pre-Procedure Diagnosis Pre-Procedure Diagnosis: Coronary artery disease Post-Procedure Note Procedure Start Date: Nov 08, 2021 Name of Procedure: Left heart catheterization Findings/Procedure Note PROCEDURE NOTE: 51 years old gentleman with history of hypertension, hyperlipidemia, has been having recurrent chest pain, had an abnormal stress test, scheduled for cardiac catheterization possible PTCA. After explaining the procedure to the patient, all pros and cons were explained, all questions were answered. The patient signed the consent and then he was placed on the cardiac catheterization laboratory. Groin was prepped SL fashion local anesthesia was used. Sheath placed in the right radial artery, [place] catheter was advanced to the left ventricular cavity, pressure was measured, pullback LV to aorta was done, engaged the right and left coronary system, multiple views were obtained. At the end of the procedure the sheath was removed. Vascular band was used FINDINGS: Hemodynamics LV 126/8, end-diastolic pressure of 8 Aorta 122/80 mean of 96 ANATOMY: Left Main is free of obstructive disease Left Anterior Descending has mild disease nonobstructive disease Left Circumflex has mild disease nonobstructive disease Right Coronary Artery has mild diffuse ectasia, mild to moderate disease in the midportion nonobstructive disease LV Gram was not done, pressure was measured CONCLUSION: 1. Mild coronary ectasia, mild to moderate disease in the mid right coronary artery, dominant artery, nonobstructive disease 2. Otherwise mild coronary artery disease nonobstructive disease 3. Normal left ventricular end-diastolic pressure DISCUSSION AND RECOMMENDATION: Medical therapy is recommended no intervention is warranted Anesthesia Type: Conscious Sedation Estimated blood loss (mL): 10 ml Contrast Amount: 50 ml Total Radiation Dose: 364 mGy Post-Procedure Diagnosis Post-operative diagnosis: 1. Chest pain Coronary artery disease Hypertension Hyperlipidemia EMILY GOODE MD Nov 08, 2021 11:05
--- NOTE | 2021-11-08 11:13 | Discharge Inst-Post CATH ---
Discharge Inst-CATH/EP Problems Reviewed?: Yes Post Cardiac Cath/EP D/C Inst Follow Up/Plan Appointment with Dr. Doe's office in 2 to 4 weeks <b>CARDIAC CATH/EP PROCEDURE DISCHARGE INSTRUCTIONS</b> ACTIVITY * Go Home directly and rest. * Limit activity of the leg (or wrist if it was used) for 7 days including aer obics, swimming, jogging, bicycling, etc. * Restrict stair-climbing for 7 days if possible, if not, climb up with your non-cath leg, then bring together on the same step. * Avoid lifting, pushing, pulling or excessive movement of the affected extremi ty for 7 days. * Customary sexual activity may be resumed after 2 days-use caution not to use a position that strains or causes pain to the affected extremity. * No driving for 24 hours. * NO SMOKING. * Avoid straining for bowel movements for 7 days. * Gentle walking on level ground is allowed. * Returning to work will depend on the type of procedure and the results. Your doctor will discuss this with you. CALL YOUR DOCTOR FOR ANY OF THE FOLLOWING: *If bleeding from the puncture site occurs- Apply gentle pressure to site with clean cloth and call your doctor or EMS. * If a knot or lump forms under the skin, increases in size, or causes pain. * If bruising appears to be worsening or moving further down your leg instead of disappearing. * Temperature above 101 F. CARE OF YOUR GROIN INCISION; * Bruising or purple discoloration of the skin near the puncture site is common. * You may shower only, no bathtub bathing for 5 days. Be careful to avoid slipping as your leg may feel stiff. * If a closure device was used on your femoral artery, please see the attached guide regarding care of the device and your leg. * Leave dressing on FOR 24 hours. CARE OF YOUR WRIST INCISION; * Bruising or purple discoloration of the skin near the puncture site is common. * You may shower. * DO NOT submerge wrist. * Leave dressing on FOR 24 hours. EMILY DOE MD Nov 08, 2021 11:13
== END 2021-11-08 13:30 ==
LOC: CATH 08:50 → SDC 11:23 → CATH 13:30
PROVIDERS: ATTEND Internal Medicine Cardiovascular Disease
DX: I25.10 Atherosclerotic heart disease of native coronary artery without angina pectoris (principal); I10 Essential (primary) hypertension; E78.5 Hyperlipidemia, unspecified; F17.210 Nicotine dependence, cigarettes, uncomplicated; Z79.899 Other long term (current) drug therapy
CPT/HCPCS: 71045; 80053; 80061; 81000; 85027; 85610; 85730; 87081; 93005; 93458; C1894; 36415

== ENCOUNTER → 2022-12-24 | Outpatient (CLI) | payer OTHER ==
[~2022-12-24] MED LIST changes: +ATOR20TA66 PO; +FLUO40CA12 PO; +METO50TA7 PO
--- NOTE | 2022-12-24 17:23 | Diagnostic Imaging Report ---
INDICATION: Peripheral vascular disease Ankle-brachial indices. Blood pressure recorded in the brachial arteries and in the thigh, calf and in the posterior tibial and dorsalis pedis regions of the ankle. The patient has very low blood pressures in both legs with ankle brachial index on the right of 0.37 at the level of the ankle and on the left at 0.1 at the level of the ankle. IMPRESSION: Critically low ankle brachial indices suggesting severe peripheral vascular disease. Dictated by: Dictated on workstation # [id number]
== END ==
LOC: RAD 13:45
PROVIDERS: ATTEND Nurse Practitioner Family
DX: I73.9 Peripheral vascular disease, unspecified (principal); I10 Essential (primary) hypertension
CPT/HCPCS: 93923

== ENCOUNTER 2023-01-02 10:35 | Day surgery (SDC) | payer OTHER ==
[2023-01-02] VITALS (11 sets, daily range): BP systolic 115–146; BP diastolic 72–90
[~2023-01-02] VITALS: Ht 165 cm; Wt 85.1 kg
[2023-01-02] MEDS ORDERED: LIDOCAINE 1% INJ 20 ML VIAL ONE ×2 (10:54→14:00)
[2023-01-02] MEDS ORDERED: NS IV 1000 ML 1,000 ML ONE (10:55)
[2023-01-02] MEDS ORDERED: HEParin (CATH LAB) 2,000 ML IV ONE (10:55)
[2023-01-02] MEDS ORDERED: NS IV 1000 ML 1,000 ML IV ONE (11:00)
[2023-01-02 11:15] LABS: BILIRUBIN,URINE 1+ (NEGATIVE); CLARITY,URINE CLEAR; COLOR,URINE YELLOW; GLUCOSE, URINE (UA) NEGATIVE (NEGATIVE); KETONES,URINE NEGATIVE (NEGATIVE); LEUKOCYTE ESTERASE ,URINE NEGATIVE (NEGATIVE); NITRITE,URINE NEGATIVE (NEGATIVE); PROTEIN,URINE 1+ (NEGATIVE)
[2023-01-02 11:17] LABS: HEMATOCRIT 48 % (40-54); HEMOGLOBIN 16.5 g/dL (13.3-17.7); MEAN CORPUSCULAR HEMOGLOBIN 30 pg (25-34); MEAN CORPUSCULAR HGB CONC 34 g/dL (32-36); MEAN CORPUSCULAR VOLUME 88 fL (80-99); MEAN PLATELET VOLUME 10.1 fL (9.0-12.2); PLATELET COUNT 243 10^3/uL (130-400); WHITE BLOOD COUNT 10.2 10^3/uL (4.3-11.0)
--- NOTE | 2023-01-02 11:22 | Diagnostic Imaging Report ---
EXAMINATION: Abnormal ankle-brachial indices. FINDINGS: The heart size and configuration are normal. The thoracic aortic contour appears normal. No appreciable thoracic aortic calcifications. The lungs are clear. No failure, effusion, or pneumothorax. IMPRESSION: Unremarkable frontal chest. Dictated by: Dictated on workstation # [id number]
[2023-01-02] MEDS ORDERED: LISI40TA9 PO (11:27)
[2023-01-02 11:28] LABS: AMORPHOUS SEDIMENT,UR FEW AMOR URATES /LPF; BACTERIA,URINE TRACE /HPF
[2023-01-02 11:32] LABS: PROTHROMBIN TIME PATIENT 12.9 SEC (12.2-14.7)
[2023-01-02 11:40] LABS: ALANINE AMINOTRANSFERASE 13 U/L (0-55); ALBUMIN 4.4 GM/DL (3.2-4.5); ALKALINE PHOSPHATASE 86 U/L (40-136); BILIRUBIN,TOTAL 0.5 MG/DL (0.1-1.0); BUN/CREATININE RATIO 12; CALCIUM 9.9 MG/DL (8.5-10.1); CARBON DIOXIDE 23 MMOL/L (21-32); CHLORIDE 104 MMOL/L (98-107); CHOLESTEROL 267 MG/DL (< 200); CREATININE SERUM 0.92 MG/DL (0.60-1.30); GFR ESTIMATED 101; GLUCOSE 234 MG/DL (70-105); HDL CHOLESTEROL 25 MG/DL (40-60); POTASSIUM 4.1 MMOL/L (3.6-5.0); SODIUM 137 MMOL/L (135-145); TOTAL PROTEIN 7.8 GM/DL (6.4-8.2); TRIGLYCERIDES 609 MG/DL (<150)
[2023-01-02] MEDS ORDERED: fentaNYL INJECTION 100 MCG/2 ML VIAL ONE ×2 (13:07→14:07)
[2023-01-02] MEDS ORDERED: MIDAZOLAM 5 MG/5 ML (VERSED) VIAL ONE ×2 (13:08→14:07)
--- NOTE | 2023-01-02 13:09 | Cardiac Procedure Note-CS/ASA ---
Pre-Procedure Note Pre-Op Procedure Note Date of Available H&P: Dec 27, 2022 Date H&P Reviewed: Jan 02, 2023 Time H&P Reviewed: 13:09 History & Physical: H&P Reviewed, Patient Examed, No changes noted Pre-Operative Diagnosis: Coronary artery disease Moderate Sedation PreProcedure Time 13:09 ASA Score 3 Airway Lungs Heart ASA score ASA 1: a normal healthy patient ASA 2: a patient with a mild systemic disease (mid diabetes, controlled hypertension, obesity ASA 3: a patient with a severe systemic disease that limits activity (angina, COPD, prior Myocardial infarction) ASA 4: a patient with an incapacitating disease that is a constant threat to life (CHF, renal failure) ASA 5: a moribund patient not expected to survive 24 hrs. (ruptured aneurysm) ASA 6: a declared brain- patient whose organs are being harvested. For emergent operations, add the letter E after the classification Mallampati Classification Grade 3 Sedation Plan Analgesia, Amnesia, Plan communicated to team members, Discussed options with patient/fam, Discussed risks with patient/fam The patient is an appropriate candidate to undergo the planned procedure, sedation, and anesthesia. The patient immediately re-assessed prior to indication. EMILY GOODE MD Jan 02, 2023 13:09
[2023-01-02] MEDS ORDERED: HEParin 1000 UNIT/ML (10ML VIAL) FOR BOLUS ONE (14:07)
[2023-01-02] MEDS ORDERED: PATIENT MAY USE OWN MEDS, ALL PO SCH (14:30)
[2023-01-02] MEDS ORDERED: IOHEXOL 350 MG/ML 150 ML (OMNIPAQUE 350) VIAL IV ONE (15:00)
[2023-01-02] MEDS ORDERED: NS 100 ML (IVPB) BAG IV ONE (15:00)
[2023-01-02] MEDS ORDERED: HOLD METFORMIN - RECEIVED CONTRAST 20 ML VIAL IV SCH (15:00)
[2023-01-02] MEDS: NS IV 1000 ML 1,000 ML IV SCH (15:50)
--- NOTE | 2023-01-02 16:59 | Diagnostic Imaging Report ---
EXAMINATION: CT angiography aorta and lower extremity with runoffs. TECHNIQUE: Multiple contiguous axial images were obtained through the abdomen , pelvis and lower extremities after administration of intravenous contrast. 3D MIP reconstructed CTA acquisition were then performed. All CT scans use one or more of the following dose optimizing techniques: automated exposure control, MA and/or KvP adjustment based on a patient size and exam type, or iterative reconstruction. HISTORY: PAD. COMPARISON: None available. FINDINGS: Vascular findings: Abdominal aorta: Occluded below the renal arteries. Celiac artery: No stenosis. Superior mesenteric artery: No stenosis. Right renal artery: No stenosis. Left renal artery: No stenosis. Inferior mesenterica artery: Occluded proximally with reconstitution via collaterals from the superior mesenteric artery. Right common iliac artery: Occluded. Right external iliac artery: Reconstituted without stenosis. Right common femoral artery: No stenosis. Right superficial femoral artery: No stenosis. Right deep femoral artery: No stenosis. Right popliteal artery: No stenosis. Right posterior tibial artery: No stenosis. Right anterior tibial artery: No stenosis. Right peroneal artery: No stenosis. Right ankle and foot vessels: Two vessel runoff. Left common iliac artery: Occluded. Left external iliac artery: Occluded. Left common femoral artery: Occluded. Left superficial femoral artery: Occluded through the proximal and mid portions with reconstitution distally. Left deep femoral artery: Occluded proximally with reconstitution in the midportion. Left popliteal artery: No stenosis. Left posterior tibial artery: No stenosis. Left anterior tibial artery: No stenosis. Left peroneal artery: Occluded in the distal portion. Left ankle and foot vessels: Two vessel runoff. Other findings: Limited views of the lower thorax are unremarkable. There are small cysts in the liver. No suspicious liver lesion. There is no biliary ductal dilation. Gallbladder is normal. Pancreas is normal. Spleen is normal. Adrenal glands are normal. There is a 1.5 x 1.4 cm nodule in the lower pole of the right kidney that appears to show contrast enhancement, concerning for renal cell carcinoma. There is no hydronephrosis. Urinary bladder is normal. Bowel is normal in caliber without obstruction or inflammation. There has been a rectosigmoid resection. There is a fat-containing ventral abdominal hernia. No free fluid or air. No abdominal or pelvic lymphadenopathy. There are no suspicious osseus lesions. There is moderate anterolisthesis of L5 on S1. IMPRESSION: 1. 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 2. The right common and internal iliac arteries are reconstituted supplying blood flow to the right lower extremity. 3. The left internal iliac, external iliac, left common femoral, superficial femoral, and deep femoral arteries are occluded with distal reconstitution of the superficial and deep femoral arteries via collateral vessels. 4. Highly suspicious 1.5 cm nodule in the lower pole of the right kidney, concerning for renal cell carcinoma. Renal protocol CT or MRI is recommended. 5. The report was faxed to the office of Dr. Doe's office as it was closed at 4:56 PM. Dictated by: Dictated on workstation # [id number]
[2023-01-02] MEDS ORDERED: ENOXAPARIN 100 MG/1 ML SYRINGE SC SCH (17:15)
[2023-01-02] MEDS: ENOXAPARIN 100 MG/1 ML SYRINGE SC SCH (18:15)
[2023-01-03] MEDS: NS IV 1000 ML 1,000 ML IV SCH ×2 (00:03→10:11)
[2023-01-03 03:05] VITALS: BP 155/99
[2023-01-03] MEDS: ENOXAPARIN 100 MG/1 ML SYRINGE SC SCH (05:40)
[2023-01-03 07:38] VITALS: BP 151/83
[2023-01-03] MEDS ORDERED: amLODIPine 10 MG TABLET PO SCH (09:00)
[2023-01-03] MEDS ORDERED: meTOproloL SUCCINATE 50 MG (TOPROL XL) TAB PO SCH (09:00)
--- NOTE | 2023-01-03 09:01 | Cardiology Progress Note ---
Subjective Date Seen by Provider: Jan 03, 2023 Time Seen by Provider: 08:59 Subjective/Events-last exam Patient was seen at bedside, sitting comfortably, feeling well. Objective-Cardiology Exam Last Set of Vital Signs Vital Signs 01/03/23 07:38 Temp 36.1 Pulse 96 Resp 10 B/P (MAP) 151/83 (105) Pulse Ox 98 O2 Delivery Room Air I&O Intake and Output 01/03/23 00:00 Intake Total 500 ml Balance 500 ml Intake Oral 500 ml # Voids 2 General: Alert, Oriented X3, Cooperative HEENT: Atraumatic, PERRLA Neck: Supple, No JVD, No Thyromegaly Lungs: Clear to Auscultation, Normal Air Movement Heart: Regular Rate, Normal S1, Normal S2, No Murmurs Abdomen: Normal Bowel Sounds, Soft, No Tenderness, No Hepatosplenomegaly, No Masses Extremities: No Clubbing, No Cyanosis, No Edema, No Tenderness/Swelling, Other (Diminished pulses) Skin: No Rashes, No Breakdown, No Significant Lesion Neuro: Normal Gait, Normal Speech, Strength at 5/5 X4 Ext, Normal Tone, Sensation Intact Psych/Mental Status: Mental Status NL, Mood NL Results Lab Laboratory Tests 01/02/23 11:05 A/P-Cardiology Admission Diagnosis Claudication Peripheral arterial disease Hypertension Hyperlipidemia Assessment/Plan Claudication, severe peripheral arterial disease CT angiogram was done showing total occlusion from the infrarenal abdominal aorta down in the right common iliac and down in the left leg to the popliteal. I attempted peripheral angiogram was able to access the right femoral artery and there was total occlusion there was good flow slow flow in the SFA and popliteal arteries Referred him to , I discussed the management plan with the vascular surgeon at offered appointment as an outpatient. Dr Mercer Coronary artery disease, cardiac catheterization done in March 2022 showing nonobstructive disease Tobaccoism, educated in length about smoking cessation Hypertension, monitor blood pressure Hyperlipidemia, started on Lipitor 80 mg daily EMILY GOODE MD Jan 03, 2023 09:01
[2023-01-03] MEDS ORDERED: PANT40SU PO (09:03)
[2023-01-03] MEDS ORDERED: CLOP-31 PO (09:03)
[2023-01-03] MEDS ORDERED: ATOR80TA76 PO (09:03)
[2023-01-03] MEDS ORDERED: ASPI-1238 PO (09:03)
[2023-01-03] MEDS ORDERED: FISH1CAP15 PO (09:03)
--- NOTE | 2023-01-03 09:04 | Discharge Inst-Post CATH ---
Discharge Inst-CATH/EP Problems Reviewed?: Yes Post Cardiac Cath/EP D/C Inst Follow Up/Plan Appointment with , vascular surgery at Appointment with Dr. Doe's office in 2 to 4 weeks <b>CARDIAC CATH/EP PROCEDURE DISCHARGE INSTRUCTIONS</b> ACTIVITY * Go Home directly and rest. * Limit activity of the leg (or wrist if it was used) for 7 days including aerobics, swimming, jogging, bicycling, etc. * Restrict stair-climbing for 7 days if possible, if not, climb up with your non-cath leg, then bring together on the same step. * Avoid lifting, pushing, pulling or excessive movement of the affected extremity for 7 days. * Customary sexual activity may be resumed after 2 days-use caution not to use a position that strains or causes pain to the affected extremity. * No driving for 24 hours. * NO SMOKING. * Avoid straining for bowel movements for 7 days. * Gentle walking on level ground is allowed. * Returning to work will depend on the type of procedure and the results. Your doctor will discuss this with you. CALL YOUR DOCTOR FOR ANY OF THE FOLLOWING: *If bleeding from the puncture site occurs- Apply gentle pressure to site with clean cloth and call your doctor or EMS. * If a knot or lump forms under the skin, increases in size, or causes pain. * If bruising appears to be worsening or moving further down your leg instead of disappearing. * Temperature above 101 F. CARE OF YOUR GROIN INCISION; * Bruising or purple discoloration of the skin near the puncture site is common. * You may shower only, no bathtub bathing for 5 days. Be careful to avoid slipping as your leg may feel stiff. * If a closure device was used on your femoral artery, please see the attached guide regarding care of the device and your leg. * Leave dressing on FOR 24 hours. CARE OF YOUR WRIST INCISION; * Bruising or purple discoloration of the skin near the puncture site is common. * You may shower. * DO NOT submerge wrist. * Leave dressing on FOR 24 hours. EMILY DOE MD Jan 03, 2023 09:04
[2023-01-03 11:52] VITALS: BP 146/110
[2023-01-03 13:25] VITALS: BP 127/83
== END 2023-01-03 13:56 | disposition home or self-care (01) ==
LOC: CATH 10:35 → CSD 15:10 → CATH 01-03 13:56
PROVIDERS: ATTEND Internal Medicine Cardiovascular Disease
DX: I70.222 Atherosclerosis of native arteries of extremities with rest pain, left leg (principal); I70.211 Atherosclerosis of native arteries of extremities with intermittent claudication, right leg; F17.210 Nicotine dependence, cigarettes, uncomplicated; I25.10 Atherosclerotic heart disease of native coronary artery without angina pectoris; I10 Essential (primary) hypertension; E78.5 Hyperlipidemia, unspecified; Z82.49 Family history of ischemic heart disease and other diseases of the circulatory system; Z79.899 Other long term (current) drug therapy
CPT/HCPCS: 71045; 75635; 75710; 80053; 80061; 81000; 85027; 85610; 85730; 87081; 93005; C1769; C1887; C1894; 36415